=== PATIENT | female | born 1990 ===

== ENCOUNTER 2021-10-11 09:43 | Outpatient (CLI) | payer BC, SELFPAY ==
--- NOTE | ~2021-10-11 | US_ITS ---
EXAMINATION: US breast RT limited HISTORY: Palpable lump in the upper outer quadrant of the right breast TECHNIQUE: Targeted high-resolution ultrasound is performed in the area of clinical concern FINDINGS: There is a benign-appearing lymph node in the right maxillary region corresponding to the a anamaria of palpable concern. No suspicious cystic or solid mass is identified. IMPRESSION: Benign-appearing right axillary lymph node without suspicious sonographic findings identified. Clinic al follow-up is recommended. BI-RADS Category 2: Benign finding(s). Reviewed, dictated and finalized at location A. AL HYGIENIST IMPRESSION: Benign-appearing right axillary lymph node without suspicious sonographic findi ngs identified. Clinical follow-up is recommended. BI-RADS Category 2: Benign finding(s).
== END 2021-10-11 09:44 ==
PROVIDERS: PCP Family Medicine; Visit Provider Nurse Practitioner Obstetrics & Gynecology
DX: N63.0 Unspecified lump in unspecified breast (principal)
CPT/HCPCS: 76642